=== PATIENT | female | born 1990 | race Caucasian/White ===

== ENCOUNTER 2017-02-02 20:15 | Emergency (ER) | payer OTHER ==
[~2017-02-02] VITALS: Ht 152.4 cm; Wt 49.0 kg
[2017-02-02] MEDS ORDERED: KETOROLAC TROMETHAMINE 60 MG/2 ML VIAL IM ONE (21:44)
[2017-02-02] MEDS: KETOROLAC TROMETHAMINE 60 MG/2 ML VIAL IM ONE (21:47)
[2017-02-02 21:56] VITALS: BP 130/71
== END 2017-02-02 21:58 | disposition home or self-care (01) ==
LOC: EMS 20:19
DX: S39.012A Strain of muscle, fascia and tendon of lower back, initial encounter (principal); V49.88XA Car occupant (driver) (passenger) injured in other specified transport accidents, initial encounter; Y93.89 Activity, other specified; Y92.89 Other specified places as the place of occurrence of the external cause; Y99.8 Other external cause status
CPT/HCPCS: 96372; 99283; J1885